=== PATIENT | male | born 1980 | race Caucasian/White ===

== ENCOUNTER → 2024-11-06 12:02 | Outpatient (REF) | payer BC, SELFPAY ==
[2024-11-06 15:32] LABS: ALT (SGPT) 22 U/L (0-50); AST (SGOT) 27 U/L (17-59); Albumin 4.5 g/dl (3.5-5.0); Alkaline Phosphatase 94 U/L (38-126); Blood Urea Nitrogen 17 mg/dl (9-20); Calcium 9.4 mg/dl (8.4-10.2); Carbon Dioxide 25 mmol/L (22-30); Chloride 108 mmol/L (98-107); Glucose 97 mg/dl (70-99); Potassium 4.3 mmol/L (3.5-5.1); Sodium 138 mmol/L (135-145); Total Bilirubin 0.9 mg/dl (0.2-1.3); Total Protein 7.2 g/dl (6.3-8.2); eGFR > 60.00
== END ==
LOC: HWRAD 12:02
PROVIDERS: ATTENDING PHYSICIAN Physician Assistant; FAMILY PHYSICIAN Family Medicine
DX: Z79.899 Other long term (current) drug therapy (principal); L74.519 Primary focal hyperhidrosis, unspecified; L74.52 Secondary focal hyperhidrosis
CPT/HCPCS: 36415; 71046; 80053

== ENCOUNTER → 2024-11-07 08:25 | Outpatient (REF) | payer BC, SELFPAY | LOC: RAD 08:25 | PROVIDERS: ATTENDING PHYSICIAN Physician Assistant; FAMILY PHYSICIAN Family Medicine | DX: L74.52 Secondary focal hyperhidrosis (principal); L74.519 Primary focal hyperhidrosis, unspecified | CPT/HCPCS: 70470; Q9967 ==